=== PATIENT | female | born 1965 | race Caucasian/White ===

== ENCOUNTER → 2025-01-25 14:39 | Outpatient (REF) | payer OTHER, SELFPAY | LOC: HWRAD 14:39 | PROVIDERS: ATTENDING PHYSICIAN Family Medicine | DX: R10.10 Upper abdominal pain, unspecified (principal) | CPT/HCPCS: 76700 ==

== ENCOUNTER 2025-07-24 11:01 | Emergency (ER) | payer OTHER, SELFPAY ==
[2025-07-24 11:20] VITALS: BP 138/84
[2025-07-24 11:44] LABS: Hematocrit 39.7 % (37.0-47.0); Hemoglobin 13.2 g/dL (12.0-16.0); Mean Corp Hgb Conc. 33.2 g/dL (33.0-37.0); Mean Corpuscular Volume 90.0 fL (81.0-99.0); Nucleated Red Blood Cells % 0 %; Platelet Count 295 10^3/uL (130-400); Red Cell Dist. Width 13.3 % (11.5-14.5)
[2025-07-24 11:56] LABS: ALT (SGPT) 28 U/L (0-35); AST (SGOT) 28 U/L (14-36); Albumin 4.5 g/dl (3.5-5.0); Alkaline Phosphatase 96 U/L (38-126); Blood Urea Nitrogen 11 mg/dl (7-17); Calcium 9.3 mg/dl (8.4-10.2); Carbon Dioxide 27 mmol/L (22-30); Chloride 104 mmol/L (98-107); Glucose 95 mg/dl (70-99); Potassium 3.8 mmol/L (3.5-5.1); Sodium 138 mmol/L (135-145); Total Protein 7.3 g/dl (6.3-8.2); Urine Character Clear (Clear); eGFR > 60.00
[2025-07-24 12:12] LABS: Urine Red Blood Cell >100 /HPF (0-2)
--- NOTE | 2025-07-24 15:39 | ED.GENMED ---
History of Present Illness
General
Chief Complaint: Flank Pain
Source: patient
Time Seen by Provider: 07/24/25 15:20
History of Present Illness
History of Present Illness:
60-year-old female presents emergency department with a history of thinking that she might have a UTI about 1 month ago. She saw her PCP, had a UA, was started on antibiotics. However although she completed the course of antibiotic she was told
that her urine culture was negative. At that time, she was having pain 'right where I pee' associated with visible hematuria. She denies actual burning or other symptoms at that time. Her symptoms resolved and then last week she noted gross
hematuria. Yesterday she noted very mild pain in the left flank that was manageable and resolved completely. Then, last night, the pain got significantly worse associated with feeling like her bladder was 'heavy' and nausea without vomiting. She
has she got into the car to come to the emergency department but said that her symptoms resolved she thinks because she was on the heated seat of the car. Today she woke with mild left flank discomfort by 10:30 AM while running errands the pain got
significantly worse. Pain noted in the left flank but also slightly in the left lower quadrant as well. She denies associated fever, chills, chest pain, dyspnea, dysuria, urgency, frequency. Since arrival, pain is much improved. Patient denies
other complaints.
Past History
Past History
ED Past Medical History: Other (Migraine)
Social History
Tobacco: Non-smoker
Alcohol: Occasional
Drug: None
Personal:
Living: with family
Phy Exam
Physical Exam
Physical Exam:
GENERAL: Alert , in no apparent distress
EYE: pupils equal and reactive
NECK: Supple, no significant adenopathy.
ENT: o/p clr, mmm.
CARDIAC: Regular rate and rhythm .
LUNGS: Clear breath sounds bilaterally, no acute respiratory distress, no wheezes/rales/rhonchi
ABDOMEN: Soft, without focal tenderness, no r/g, no cvat
NEUROLOGICAL: Alert and oriented, no focal neuro deficits
SKIN: Warm and dry, skin intact.
MUSCULOSKELETAL: No edema, well perfused.
PSYCH: Normal and appropriate interaction.
Course
Orders/Labs/Results
Orders:
Orders
07/24/25 11:25
CT Abd/pelvis Wo Iv Cont Urgent
Comment:
Reason For Exam: left flank pain
07/24/25 11:33
Complete Blood Count/With Diff Urgent
Comprehensive Metabolic Panel Urgent
Urinalysis Reflex To Culture Urgent
Date Specimen was Collected: 07/24/25
Time Specimen was Collected: 11:23
Urine Microscopic Reflex Cult Urgent
Urine Culture Urgent
ELAINA Source: U
Specimen Description:
Date Specimen was Collected: 07/24/25
Time Specimen was Collected: 11:23
07/24/25 15:38
Ketorolac [Toradol] 15 mg IM NOW STA
Tamsulosin [Flomax] 0.4 mg PO NOW STA
07/24/25 15:[address] Non Medication Order As Directed
Physician Order: strainer and specimen cup for d/c please
Abnormal Lab Results
07/24/25
11:33
Urine Ketones 1+ A
(Negative)
Ur Occult Blood Reflex 4+ A
(Negative)
Leukocyte Esterase Rfl 2+ A
(Negative)
Urine RBC >100 A /HPF
(0-2)
Urine WBC (Reflex) 11-15 A /HPF
(0-5)
Urine Bacteria (Reflex) Moderate A
(Negative)
Urine Albumin (Reflex) 2+ A
(Neg - Trace)
07/24/25 11:33
07/24/25 11:33
Vital Signs
Initial and Last Documented VS:
Initial Vital Signs
Temp Pulse Resp BP Pulse Ox
98.9 F 77 17 138/84 99
07/24/25 11:20 07/24/25 11:20 07/24/25 11:20 07/24/25 11:20 07/24/25 11:20
Last Documented Vital Signs
Temp Pulse Resp BP Pulse Ox
98.9 F 71 16 129/81 98
07/24/25 11:20 07/24/25 15:54 07/24/25 15:54 07/24/25 15:54 07/24/25 15:54
*Pulse Oximetry
SaO2: 99
Oxygen Mode of Delivery: Room air
Patient hypoxic: no
*Critical Care Note
Total Time (30-74mins, 75-104mins- exclusive of procedures): Not Applicable
Update Note
Update Note:
Patient presents to the Emergency Department with ___flank pain
Number and Complexity of Problems Addressed at the Encounter
� Chronic conditions affecting care:
� Acute Exacerbation and/or Progression of Chronic Illness:
� Differential Diagnosis includes: But not limited to pyelonephritis, kidney stone, musculoskeletal pain, etc. etc.
Amount and/or Complexity of Data to be Reviewed and Analyzed
� I performed an independent evaluation of and my interpretation is:
EKG:
CT: Reviewed by me, left sided 3 mm stone at UV junction with mild hydro
Xrays:
Laboratory Studies: Generally unremarkable
Other: UA not highly suggestive of UTI, squamous cells obscuring
� Review of other/old records reveals:
� Clinical information was obtained by an independent historian:
� Prescriptions/Medications Considered but not given:
� Further testing considered but not performed:
Risk of Complications and/or Morbidity or Mortality of Patient Management
� Social determinants of health affecting care:
� Discussion with other providers (PCP, Hospitalists, Consultants, etc):
� Escalation of care including admission/observation vs risk of discharge considered: Patient very comfortable now. Discussed with her her diagnosis including the diverticulosis noted on CT, and importance of follow-up.
Discussed with her reasons to return to the ER and management at home.
ED Attending Note
-
Portions of this chart may have been created with voice recognition software.� Occasional wrong word or��sound alike� substitutions may have occurred due to the inherent limitations of voice recognition software.
Discharge Plan
Departure
Patient Disposition: Home (Routine Discharge)
Date of Disposition: 07/24/25
Time of Disposition: 15:46
Patient with high blood pressure during this ER visit?: Yes
Condition: Good
Discharge Problem:
Kidney stone
Instructions: Kidney Stones (DC), How to Strain Your Urine, BLOOD PRESSURE, Narcotic Pain Medication
Prescriptions:
New
tamsulosin 0.4 mg capsule
0.4 mg PO DAILY Qty: 30 0RF
oxycodone-acetaminophen [Percocet] 5-325 mg tablet
1 tab PO Q4HPRN PRN (Reason: pain) Qty: 13 0RF
No Action
celecoxib 200 MG capsule
200 mg PO BID Qty: 20 0RF
Rx Instructions:
use for 48-72h around the clock, then as needed
can replace with Adbvil or Aleve if not covered by drug plan
hydrocodone-acetaminophen 1 TABLET tablet
1 tab PO Q4HPRN PRN (Reason: moderate pain) Qty: 20 0RF
Rx Instructions:
can increase to 2tabs for severe pain
polyethylene glycol 3350 17 GRAMS powder in packet
17 grams PO DAILY Qty: 10 0RF
Rx Instructions:
use if no BM >24h
OTC, no Rx needed
Referrals:
Rich Nicole MD [Active, Urology] - Follow up in 2-3 days
Activity Restrictions/Additional Instructions:
IF YOU DEVELOP FEVER, CHILLS, DIFFICULTY URINATING, PAIN WITH URINATION, INCREASING NEW OR PERSISTENT PAIN, VOMITING, GET WORSE, DO NOT GET BETTER, OR OTHER WORRISOME SIGNS, PLEASE RETURN TO THE ER IMMEDIATELY!
Interventions
Interventions:
*General Assessment Last Done: 07/24/25 11:22
*Neglect/Abuse Screening Last Done: 07/24/25 11:22
*ED COVID-19 Vaccine History Last Done: 07/24/25 11:22
*ED Influenza Vaccine History Last Done: 07/24/25 11:22
[facility] Fall Risk Assessment Tool Last Done: 07/24/25 15:57
*Risk Screen - Suicide (C-SSRS) Last Done: 07/24/25 11:22
*Nursing Disposition Last Done: 07/24/25 15:57
GP-Migitw-Lxvtegknod Assessment Last Done: 07/24/25 15:57
ED-Female Genitourinary Assessment Last Done: 07/24/25 15:57
Discharge Date and Time
Discharge Date/Time: 07/24/25 15:57
Print Language: PERSIAN
[2025-07-24] MEDS: TORADOL 15 MG IM (15:50)
[2025-07-24] MEDS: FLOMAX 0.4 MG PO (15:50)
[2025-07-24 15:54] VITALS: BP 129/81
== END 2025-07-24 15:57 | disposition home or self-care (01) ==
LOC: EMR 11:01
PROVIDERS: Emergency Medicine; EMERGENCY PHYSICIAN Emergency Medicine; FAMILY PHYSICIAN Family Medicine
DX: N13.2 Hydronephrosis with renal and ureteral calculous obstruction (principal); R31.0 Gross hematuria; Z87.440 Personal history of urinary (tract) infections
CPT/HCPCS: 96372; 99284; 74176; 80053; 81003; 81015; 85025; 87086